=== PATIENT | male | born 1965 | race Caucasian/White ===

== ENCOUNTER 2018-08-07 07:46 | Day surgery (SDC) | payer OTHER ==
[~2018-08-07] VITALS: Ht 188 cm; Wt 99.0 kg
[~2018-08-07 07:46] MED LIST: ALFU10 PO; BRINTELLIX10 MG PO; CLON1 PO; IRBE75 PO; MULTI VITAMIN1 EACH PO
== END 2018-08-07 09:39 | disposition home or self-care (01) ==
LOC: ORSCSDS 07:46
PROVIDERS: Internal Medicine Gastroenterology
PROC: 0DJD8ZZ Inspection of Lower Intestinal Tract, Via Natural or Artificial Opening Endoscopic (ICD-10-PCS; principal; 2018-08-07 09:00)
DX: Z12.11 Encounter for screening for malignant neoplasm of colon (principal); K64.4 Residual hemorrhoidal skin tags; K57.30 Diverticulosis of large intestine without perforation or abscess without bleeding; Z86.010 Personal history of colon polyps; Z83.71 Family history of colonic polyps; I10 Essential (primary) hypertension; Z79.899 Other long term (current) drug therapy
CPT/HCPCS: J2250; J2704; J7120